=== PATIENT | female | born 1960 | race Caucasian/White ===

== ENCOUNTER → 2016-07-25 16:42 | Outpatient (CLI) | payer MEDICAID | END | disposition home or self-care (01) | LOC: D.MAMMO 06-24 09:00 | DX: R92.8 Other abnormal and inconclusive findings on diagnostic imaging of breast (principal) ==

== ENCOUNTER → 2016-11-03 13:14 | Outpatient (CLI) | payer BC ==
[~2016-11-03] VITALS: Ht 165.1 cm; Wt 67.7 kg
[~2016-11-03 13:14] MED LIST: ESTRACE 0.5 MG0.5 MG PO; LIPITOR20 MG PO; REQUIP1 MG PO; SYNTHROID125 MCG PO; ZYRTEC10 MG PO
[2016-11-03 15:26] VITALS: BP 125/87; Ht 165.1 cm; Wt 67.7 kg
--- NOTE | 2016-11-03 15:27 | NUR ---
1530-WARM SOAP SUDS ENEMA GIVEN.
--- NOTE | 2016-11-03 16:00 | NUR ---
1545-PT. UP TO TOILET, RELEASED SMALL BROWN LIQUIDY STOOL IN TOILET.
--- NOTE | 2016-11-03 16:00 | NUR ---
1535-SMALL BROWN BOWEL MOVEMENT IN TOILET. LARGE WARM SOAP SUDS ENEMA GIVEN.
--- NOTE | 2016-11-03 16:34 | NUR ---
1600-PT. UP TO TOILET TOTAL OF 4 TIMES AFTER SECOND ENEMA TO RELEASE ADDITIONAL LIQUIDY BROWN STOOL. OFFERED ADDITIONAL SOAP SUDS ENEMA, PT. REFUSED OFFERED ENEMA. STATES SHE WILL TAKE PRESCRIBED MEDICATIONS BY PRIMARY DOCTOR TO RELIEVE CONSTIPATION.
--- NOTE | 2016-11-03 16:36 | NUR ---
1625-PT. LEFT AMBULATORY.
== END | disposition home or self-care (01) ==
LOC: D.OPS 13:14
DX: K59.00 Constipation, unspecified (principal)

== ENCOUNTER → 2017-06-01 14:21 | Outpatient (CLI) | payer BC ==
[2016-11-03 15:26] VITALS: BMI 24.8
== END | disposition home or self-care (01) ==
LOC: D.MAMMO 11:30
DX: R92.8 Other abnormal and inconclusive findings on diagnostic imaging of breast (principal)

== ENCOUNTER 2018-06-02 05:00 | Day surgery (SDC) | payer OTHER ==
[2018-06-01 09:11] LABS: HEMATOCRIT 41.9 % (36.0-48.0); HEMOGLOBIN 14.5 g/dL (12-16); MCH 31.5 pg (26.0-34.0); MCHC 34.6 g/dL (31.0-37.0); MCV 90.9 fL (80.0-100.0); MEAN PLATELET VOLUME 9.9 fL (7.4-10.4); RBC 4.61 10x6/uL (4.00-5.40); RDW 12.4 % (11.5-14.5); WBC 6.5 10x3/uL (4.8-10.8)
[~2018-06-02] VITALS: Ht 165.1 cm; Wt 65.8 kg
[~2018-06-02 05:00] MED LIST changes: +CALCIUM 250+D T1 TAB PO; +DHEA25 M1 PO; +FISH OIL 1,0001 CA1 PO; +MELATONIN5 MG PO; +PROBIOTIC BLEN1 EACH PO; +RED YEAST RICE600 MG PO; +TUMERIC PO; +VITAMIN D31000 UNIT PO; +[UNRECOGNIZED DRUG - OTHER] PO
[2018-06-02 05:55] VITALS: BP 106/71; Ht 165.1 cm; Wt 65.8 kg
--- NOTE | 2018-06-23 09:56 | OP ---
PATIENT NAME: KATHRYN PERRIN MEDICAL RECORD: [id number] :58 LOCATION:D[facility] ADMISSION DATE: SURGEON: SUMA PITTMAN DPM DATE OF OPERATION: 06/02/2018 PREOPERATIVE DIAGNOSIS: Hallux abductovalgus, right foot. POSTOPERATIVE DIAGNOSIS: Hallux abductovalgus, right foot. PROCEDURE: Allen bunionectomy of right foot with 0.062 inch K-wire fixation. HEMOSTASIS: Right ankle tourniquet at 250 mmHg. ANESTHESIA: General with local infiltrate utilizing lidocaine and Marcaine plain, 15 cc total around the first ray of the right foot. PREOPERATIVE DETAILS: The patient was taken to the OR and placed on the operating table in a supine position followed by induction of general anesthesia and infiltration of local anesthetic. The right extremity was then prepped and draped in the usual aseptic technique followed by exsanguination and inflation of tourniquet. A 15 blade was used to create a 4-cm linear incision over the dorsal aspect of the first ray extending to the base of proximal phalanx of the hallux. The incision was deepened down through the subcutaneous tissue being sure to avoid all vital structures. Dissection was carried down to the first MPJ capsule where an inverted L capsulotomy was performed. The medial capsular flap was reflected and the head of the first metatarsal was delivered. A sagittal saw was used to resect the medial eminence. Attention was directed to the first interspace where a lateral release was performed. Attention was then redirected to medial aspect of the head of first metatarsal where a sagittal saw was used to create V-osteotomy through and through. The capital fragment was translocated laterally and fixated with a 0.062 inch K-wire. The pin was cut. The medial redundant shelf was resected with a bone saw. The wound was flushed. The joint capsule was repaired with 4-0 Vicryl, the subcutaneous tissue with 4-0 Rapide in a splint. Skin was closed with 4-0 Rapide in a subcuticular technique followed by Dermabond. Adaptic, 4 x 4 and Conform were used to dress the wound followed by Coban. Tourniquet was deflated. POSTOPERATIVE DETAILS: The patient tolerated the procedure well and left the OR with vital signs stable and vascular status at preoperative levels. The patient was transported to recovery per anesthesia in stable condition. TRANSINT:[id number] Voice Confirmation ID: [id number] DOCUMENT ID: [id number] SUMA PITTMAN DPM at 0956 CC: [id number] DICTATION DATE: 06/02/18 0745 CHOPPER OPERATOR: 06/02/18 0839 [facility] 06/02/18 [place] [id number] [place] [id number]
== END 2018-06-02 10:00 | disposition home or self-care (01) ==
LOC: D.OPS 05:00 → D.PAN 07:00 → D.OPS 07:00
PROVIDERS: Anesthesiology
DX: M20.11 Hallux valgus (acquired), right foot (principal); E07.9 Disorder of thyroid, unspecified; G25.81 Restless legs syndrome; Z01.812 Encounter for preprocedural laboratory examination; Z79.890 Hormone replacement therapy; Z79.899 Other long term (current) drug therapy

== ENCOUNTER 2020-01-17 09:15 | Outpatient (CLI) | payer OTHER ==
[2018-06-02 05:55] VITALS: BMI 24.1
== END 2020-01-17 10:00 | disposition home or self-care (01) ==
LOC: D.MAMMO 09:15
PROVIDERS: ATTEND Family Medicine
DX: Z12.31 Encounter for screening mammogram for malignant neoplasm of breast (principal)